=== PATIENT | female | born 1945 | race Caucasian/White ===

== ENCOUNTER 2017-06-14 11:40 | Outpatient (CLI) | payer MEDICARE, OTHER ==
[2017-06-14 13:24] LABS: Hemoglobin 13.5 g/dL (12.0-16.0); Mean Corpuscular HGB CONC 34.3 g/dL (32.0-36.0); Mean Corpuscular Hemoglobin 32.4 pg (27.0-31.0); Mean Corpuscular Volume 94.5 fl (81.0-99.0); Mean Platelet Volume 8.7 fL (7.4-10.4); Platelet Count 174 thou/uL (130-400); RBC Distribution Width 13.4 % (11.5-14.5); Red Blood Cell (RBC) Count 4.16 mill/uL (4.20-5.40); White Blood Cell (WBC) Count 6.6 thou/uL (4.8-10.8)
[2017-06-14 13:34] LABS: Anion Gap 11 mmol/L (10-20); BUN (Urea Nitrogen) 26 mg/dL (9.8-20.1); Calc. Creatinine Clearance 0 mL/min (70-130); Calcium 11.3 mg/dL (7.8-10.44); Carbon Dioxide 28 mmol/L (23-31); Chloride 104 mmol/L (98-107); Estimated GFR-MDRD 68; Glucose 80 mg/dL (83-110); Potassium 4.1 mmol/L (3.5-5.1); Sodium 139 mmol/L (136-145)
[2017-06-14 13:35] LABS: Platelet Count 183 thou/uL (130-400)
[2017-06-14 13:40] LABS: PTT 37.7 SEC (22.9-36.1); Prothrombin Time 22.9 SEC (12.0-14.7)
== END 2017-06-14 11:41 | disposition home or self-care (01) ==
LOC: LABBT 11:40
PROVIDERS: ATTEND Urology
DX: Z01.812 Encounter for preprocedural laboratory examination (principal); N20.0 Calculus of kidney
CPT/HCPCS: 80048; 85027; 85576; 85610; 85730; 87086

== ENCOUNTER 2017-06-26 05:55 | Day surgery (SDC) | payer MEDICARE, OTHER ==
[2017-06-14 12:11] VITALS: BMI 40.7
[2017-06-26] MEDS ORDERED: Fentanyl 100 MCG/2 ML VIAL ONE (07:26)
[2017-06-26] MEDS ORDERED: cefTRIAXone\\ROCEPHIN 1 GM VIAL ONE (07:44)
[2017-06-26] MEDS ORDERED: Iothalamate Meglumine 60% 50 ML VIAL FS ONE (08:09)
--- NOTE | 2017-06-26 11:51 | OP ---
DATE OF PROCEDURE: 06/26/2017 PREOPERATIVE DIAGNOSIS: Right renal stone. POSTOPERATIVE DIAGNOSIS: Right renal stone. PROCEDURE PERFORMED: Right extracorporeal shock wave lithotripsy, cystoscopy, right stent. SURGEON: Alex Syed M.D. ANESTHETIC: General. ESTIMATED BLOOD LOSS: Not recorded. FINDINGS: There was a large right renal pelvic stone treated with 2500 shocks at level 4. It did ap pear to change its shape and outlines did blur, some suggested the breakup 4.8 x 24 cm stent without a string attached was placed at the end of the case. OPERATIVE TECHNIQUE: After obtaining written and verbal consent from the patient, after documenting normal preoperative blood work today for an elevated PT and INR, which is related to her being drawn while she was still on anticoagulation. She was taken to the operating suite. She was placed in the supine position on the treatment table. PlexiPulses were placed on her lower extremities and turned on. She was given a general anesthetic, oral obturator intubation. She was coupled to the lithotri ptor unit. Stone was easily seen and placed in treatment focal point. Shockwave therapy was commenc ed in very low kV. After about 300 shocks, a pause was given. KUB was taken up only to level 4. Th e stone was treated with 2500 shocks. She was then placed in dorsal lithotomy position, sterilely pr epped and draped. Cystoscopy was performed with a 22-Bruneian sheath and a 30-degree lens. The bladde r showed no evidence of tumor, foreign body, or stone. There was some mild bloody efflux from the ri ght ureter. The right ureter itself was quite small. A guidewire was used to intubate this and then a 5 Bruneian Pollack catheter was placed a few centimeters up the ureter. Contrast injected in a retr ograde manner to fill out the collecting system. Wire was then advanced up into the upper collecting system. The open-ended catheter was removed. The stent was placed over the guidewire and pushed up in place with the aid of a pusher, so its proximal end coiled in the renal pelvis and its distal end coiled in the bladder when the wire was removed. The patient at this point was awakened, extubated, and taken by stretcher to the recovery room.
[2017-06-26] MEDS ORDERED: Metoclopramide HCl 10 MG/2 ML VIAL ONE (16:03)
[2017-06-26] MEDS ORDERED: ePHEDrine/0.9% NaCl/PF SYRINGE 50 mg/10 ml ONE (16:03)
[2017-06-26] MEDS ORDERED: Dexamethasone 20 MG/5 ML VIAL ONE (16:03)
[2017-06-26] MEDS ORDERED: diphenhydrAMINE 50 MG/ML VIAL ONE (16:03)
[2017-06-26] MEDS ORDERED: Propofol 200 MG/20 ML VIAL ONE (16:03)
[2017-06-26] MEDS ORDERED: Ondansetron HCl/PF 4 MG/2 ML Vial ONE (16:03)
[2017-06-26] MEDS ORDERED: Lidocaine 1% PF 5 ML VIAL ONE (16:03)
[2017-06-26] MEDS ORDERED: PHENYLEPHRINE-NS 100 MCG/ML 10 ML SYRINGE ONE (16:03)
== END 2017-06-26 11:20 | disposition home or self-care (01) ==
LOC: SDC 05:55
PROVIDERS: ATTEND Urology
PROC: 0TF3XZZ Fragmentation in Right Kidney Pelvis, External Approach (ICD-10-PCS; principal; 2017-06-26)
PROC: 0T768DZ Dilation of Right Ureter with Intraluminal Device, Via Natural or Artificial Opening Endoscopic (ICD-10-PCS; 2017-06-26)
DX: N20.0 Calculus of kidney (principal); Z91.048 Other nonmedicinal substance allergy status; Z88.1 Allergy status to other antibiotic agents; Z96.653 Presence of artificial knee joint, bilateral; Z90.710 Acquired absence of both cervix and uterus; Z90.49 Acquired absence of other specified parts of digestive tract; Z98.890 Other specified postprocedural states
CPT/HCPCS: 50590; 52332; C1758; J0131; J0696; J1100; J1200; J2001; J2405; J2704; J2765; J3010; Q9961

== ENCOUNTER 2017-07-10 06:09 | Day surgery (SDC) | payer MEDICARE, OTHER ==
[2017-07-09 10:45] VITALS: BMI 40.7
[2017-07-10] MEDS ORDERED: Midazolam HCl 2 mg/2 ml Vial ONE (06:54)
[2017-07-10] MEDS ORDERED: Fentanyl 100 MCG/2 ML VIAL ONE (06:54)
[2017-07-10] MEDS ORDERED: CEFAZOLIN/Water 2 GM/20 ML SYRINGE ONE (07:07)
[2017-07-10 07:22] LABS: Hemoglobin 13.1 g/dL (12.0-16.0); Mean Corpuscular HGB CONC 33.1 g/dL (32.0-36.0); Mean Corpuscular Hemoglobin 30.9 pg (27.0-31.0); Mean Corpuscular Volume 93.3 fl (81.0-99.0); Mean Platelet Volume 8.7 fL (7.4-10.4); Platelet Count 168 thou/uL (130-400); RBC Distribution Width 13.3 % (11.5-14.5); Red Blood Cell (RBC) Count 4.23 mill/uL (4.20-5.40); White Blood Cell (WBC) Count 9.3 thou/uL (4.8-10.8)
[2017-07-10 07:34] LABS: Anion Gap 12 mmol/L (10-20); BUN (Urea Nitrogen) 35 mg/dL (9.8-20.1); Calc. Creatinine Clearance 80 mL/min (70-130); Calcium 11.1 mg/dL (7.8-10.44); Carbon Dioxide 26 mmol/L (23-31); Chloride 103 mmol/L (98-107); Estimated GFR-MDRD 46; Glucose 142 mg/dL (83-110); Potassium 3.9 mmol/L (3.5-5.1); Sodium 137 mmol/L (136-145)
--- NOTE | 2017-07-10 08:10 | RAD ---
KUB: HISTORY: Preoperative evaluation. FINDINGS/IMPRESSION: Multiple calcific densities consistent with calculi are seen in the projection of the left kidney. T here is a right-sided atrial stent. There is a suggestion of a 1.7 cm calculus in the projection of the right kidney. Pelvic phleboliths are seen. There is a significant amount of fecal material in t he colon. POS: [facility]
--- NOTE | 2017-07-10 13:32 | OP ---
DATE OF PROCEDURE: 07/10/2017. PREOPERATIVE DIAGNOSIS: Right renal stone. POSTOPERATIVE DIAGNOSIS: Right renal stone. PROCEDURE PERFORMED: Right ESWL. SURGEON: Dr. Alex Syed ANESTHETIC: General. ESTIMATED BLOOD LOSS: Not recorded. FINDINGS: She has a 2 cm or slightly larger group of stones in the renal pelvis. She has been treat ed a couple weeks ago. She was treated with 2850 shocks at maximum kV level of 5 today, did appear c hanged its configuration again. Lot of shocks miss the stone because of movement from the patient wi th her breathing and even with anesthesia giving her more sedation and more shallow breathing, and sh e still had this. For this reason, we did treat with a few more than we would have up to 2850 and tr y to get as many as we could on the stone itself. OPERATIVE TECHNIQUE: After obtaining written and verbal consent from the patient after receiving IV antibiotics, she was taken to the operating suite. She was placed in supine position on the treatmen t table. PlexiPulses were placed on her lower extremities and turned on. She was given a general an esthetic, oral obturator intubation. She was coupled to the lithotripter unit. The stone was easily seen and she was placed in treatment focal point. Shockwave therapy was commenced and after 100 or so shocks, a pause was given. She was restarted up and taken up to level 5, repositioned as necessar y with frequent use of fluoroscopy because of movement of the stone with breathing. At the end of 28 50 shocks, the stone appeared to have changes configuration considerably and the procedure was at [facility] t point terminated. She was awakened, extubated, and taken by stretcher to the recovery room.
--- NOTE | 2017-07-10 15:43 | EKG ---
Test Reason : PREOP Blood Pressure : / mmHG Vent. Rate : 066 BPM Atrial Rate : 340 BPM P-R Int : 000 ms QRS Dur : 092 ms QT Int : 382 ms P-R-T Axes : 000 057 -30 degrees QTc Int : 400 ms Atrial fibrillation Incomplete right bundle branch block Abnormal ECG Confirmed by YANELI KNOX ([id number]) on 07/10/2017 3:42:46 PM Referred By: LIU Confirmed By:YANELI KNOX
[2017-07-10] MEDS ORDERED: Lidocaine 1% PF 5 ML VIAL ONE (16:27)
[2017-07-10] MEDS ORDERED: Metoclopramide HCl 10 MG/2 ML VIAL ONE (16:27)
[2017-07-10] MEDS ORDERED: Ondansetron HCl/PF 4 MG/2 ML Vial ONE (16:27)
[2017-07-10] MEDS ORDERED: Dexamethasone 20 MG/5 ML VIAL ONE (16:27)
[2017-07-10] MEDS ORDERED: ePHEDrine/0.9% NaCl/PF SYRINGE 50 mg/10 ml ONE (16:27)
[2017-07-10] MEDS ORDERED: diphenhydrAMINE 50 MG/ML VIAL ONE (16:27)
[2017-07-10] MEDS ORDERED: Propofol 200 MG/20 ML VIAL ONE (16:27)
== END 2017-07-10 12:00 | disposition home or self-care (01) ==
LOC: SDC 06:09
PROVIDERS: ATTEND Urology
PROC: 0TF3XZZ Fragmentation in Right Kidney Pelvis, External Approach (ICD-10-PCS; principal; 2017-07-10)
DX: N20.0 Calculus of kidney (principal); E89.0 Postprocedural hypothyroidism; E89.2 Postprocedural hypoparathyroidism; I10 Essential (primary) hypertension; I48.91 Unspecified atrial fibrillation; M19.90 Unspecified osteoarthritis, unspecified site; E66.01 Morbid (severe) obesity due to excess calories; Z68.41 Body mass index [BMI] 40.0-44.9, adult; Z99.89 Dependence on other enabling machines and devices; Z79.890 Hormone replacement therapy; Z79.01 Long term (current) use of anticoagulants; Z79.899 Other long term (current) drug therapy; Z88.1 Allergy status to other antibiotic agents; Z91.048 Other nonmedicinal substance allergy status; Z96.653 Presence of artificial knee joint, bilateral; Z96.89 Presence of other specified functional implants; Z90.89 Acquired absence of other organs; Z90.710 Acquired absence of both cervix and uterus; Z90.49 Acquired absence of other specified parts of digestive tract; Z98.890 Other specified postprocedural states; Z85.828 Personal history of other malignant neoplasm of skin; Z87.442 Personal history of urinary calculi
CPT/HCPCS: 36415; 74018; 80048; 85027; 93005; 93010; J1100; J1200; J2001; J2250; J2405; J2704; J2765; J3010

== ENCOUNTER 2017-07-24 06:18 | Day surgery (SDC) | payer MEDICARE, OTHER ==
[2017-07-23 13:57] VITALS: BMI 40.7
[2017-07-24] MEDS ORDERED: cefTRIAXone\\ROCEPHIN 1 GM, Syringe 0.4 ML in Sterile Water 9.6 ML SLOW IVP ONE (07:30)
[2017-07-24 08:09] LABS: Anion Gap 10 mmol/L (10-20); BUN (Urea Nitrogen) 26 mg/dL (9.8-20.1); Calc. Creatinine Clearance 104 mL/min (70-130); Carbon Dioxide 26 mmol/L (23-31); Chloride 107 mmol/L (98-107); Estimated GFR-MDRD 61; Glucose 117 mg/dL (83-110); Potassium 4.3 mmol/L (3.5-5.1); Sodium 139 mmol/L (136-145)
[2017-07-24] MEDS ORDERED: Iothalamate Meglumine 60% 50 ML VIAL FS ONE (09:39)
[2017-07-24] MEDS ORDERED: Fentanyl 250 MCG/5 ML VIAL ONE (12:07)
--- NOTE | 2017-07-24 12:52 | OP ---
DATE OF PROCEDURE: 07/24/2017 PREOPERATIVE DIAGNOSIS: Right renal stones. POSTOPERATIVE DIAGNOSIS: Right renal stones. PROCEDURES PERFORMED: Right ESWL with cystoscopy, removal of right stent, replacement of right stent . SURGEON: Alex Syed M.D. ANESTHESIA: General. ESTIMATED BLOOD LOSS: Not recorded. FINDINGS: She had stone fragments from prior lithotripsies of a very large right renal pelvic stone. We treated most these fragments in the renal pelvic region and we treated with 2500 shocks at [facility] KV level of 5 and 6, 5 for the first 1400 and 6 for the next 1100. We then treated with 300 extra shots with some smaller stone fragments that were done in the lower pole. A stent was replaced with a 6 x 24 Polaris without string attached. OPERATIVE TECHNIQUE: Obtained written verbal consent from the patient. After receiving IV antibioti cs, she was taken to the operating suite. She was placed in supine position on treatment table. Ple xiPulses were placed on lower extremities and turned on. She was given a general anesthetic, oral in tubation. The lithotripter unit was brought in and coupled to where the stones were placed in [facility] focal point and shockwave therapy was commenced. Fluoroscopy was used intermittently to document stone fragmentation and reposition as necessary. She has had a pause given after a couple 100 shock s and at that point, we went up to a KV level of 5 and after 1400 shocks up to KV level of 6. We the n repositioned her and treated some smaller stone little fragments that were in the lower pole with 3 00 shocks. At this point, she was placed in the dorsal lithotomy position, sterilely prepped and tabitha ped. Cystoscopy was performed with a 22 Lao sheath, well lubricated, passed in direct vision thro ugh the female urethra into the bladder with aid of a video camera and monitor and a 30-degree lens. The bladder was filled and emptied. There was some blood in the bladder effluxing from the right ur eter that was not a significant amount. Indwelling stent was grasped and brought out through the ure thral meatus and started to mildly and crossed guidewire was fed through and it was removed over the guidewire. A 5 Lao Pollack catheter was passed up into the midureter. It was removed. Contrast injected to fill out the collecting system on that side showed some filling defects consistent with s mall stones and probably some blood clots. A guidewire was replaced. The open-ended catheter was re moved and a 6 x 24 Polaris double-J stent was pushed up over the guidewire into place so its proximal end coiled in the renal pelvis and its distal end coiled in the bladder when the wire was removed. The patient at this point was awakened and extubated and taken by stretcher to the recovery room.
== END 2017-07-24 13:40 | disposition home or self-care (01) ==
LOC: SDC 06:18
PROVIDERS: ATTEND Urology
PROC: 0TF3XZZ Fragmentation in Right Kidney Pelvis, External Approach (ICD-10-PCS; principal; 2017-07-24)
PROC: 0T768DZ Dilation of Right Ureter with Intraluminal Device, Via Natural or Artificial Opening Endoscopic (ICD-10-PCS; 2017-07-24)
DX: N20.0 Calculus of kidney (principal); E03.9 Hypothyroidism, unspecified; I10 Essential (primary) hypertension; I48.91 Unspecified atrial fibrillation; N95.2 Postmenopausal atrophic vaginitis; Z88.1 Allergy status to other antibiotic agents; Z91.048 Other nonmedicinal substance allergy status; Z79.01 Long term (current) use of anticoagulants; Z79.899 Other long term (current) drug therapy
CPT/HCPCS: 80048; 96374; A4216; C1758; J0131; J0696; J3010; Q9961

== ENCOUNTER 2017-08-14 11:49 | Day surgery (SDC) | payer MEDICARE, OTHER ==
[2017-08-13 10:15] VITALS: BMI 40.7
[2017-08-14] MEDS ORDERED: Glycopyrrolate 0.2 MG/ML 5 ML SYRINGE ONE (13:12)
[2017-08-14] MEDS ORDERED: PROPOFOL 200 MG/20 ML VIAL ONE (13:12)
[2017-08-14] MEDS ORDERED: Ondansetron HCl/PF 4 MG/2 ML Vial ONE (13:12)
[2017-08-14] MEDS ORDERED: PHENYLEPHRINE-NS 100 MCG/ML 10 ML SYRINGE ONE (13:12)
[2017-08-14] MEDS ORDERED: Esmolol 100 MG/10 ML VIAL ONE (13:12)
[2017-08-14] MEDS ORDERED: Dexamethasone 20 MG/5 ML VIAL ONE (13:12)
[2017-08-14] MEDS ORDERED: Lidocaine 1% PF 5 ML VIAL ONE (13:12)
[2017-08-14] MEDS ORDERED: cefTRIAXone\\ROCEPHIN 1 GM, Syringe 0.4 ML in Sterile Water 9.6 ML SLOW IVP ONE (13:15)
[2017-08-14 13:27] LABS: #Basophils 0.1 thou/uL (0.0-0.2); #Eosinphils 0.3 thou/uL (0.0-0.7); #Lymphocytes 2.4 thou/uL (1.20-3.40); #Monocytes 0.8 thou/uL (0.11-0.59); #Neutrophils 3.9 thou/uL (1.40-6.50); %Basophils 1.3 % (0.0-1.0); %Lymphocytes 31.6 % (21.0-51.0); %Monocytes 10.7 % (0.0-10.0); %Neutrophils 52.3 % (42.0-75.0); Mean Corpuscular Hemoglobin 30.3 pg (27.0-31.0); Mean Corpuscular Volume 94.6 fl (81.0-99.0); Mean Platelet Volume 8.5 fL (7.4-10.4); Platelet Count 190 thou/uL (130-400); RBC Distribution Width 13.7 % (11.5-14.5); Red Blood Cell (RBC) Count 4.96 mill/uL (4.20-5.40); White Blood Cell (WBC) Count 7.5 thou/uL (4.8-10.8)
[2017-08-14 13:39] LABS: INR-International Normal Ratio 1.1; PTT 29.8 SEC (22.9-36.1); Prothrombin Time 14.5 SEC (12.0-14.7)
[2017-08-14 13:51] LABS: Anion Gap 11 mmol/L (10-20); BUN (Urea Nitrogen) 25 mg/dL (9.8-20.1); Calc. Creatinine Clearance 101 mL/min (70-130); Carbon Dioxide 31 mmol/L (23-31); Chloride 102 mmol/L (98-107); Estimated GFR-MDRD 60; Glucose 104 mg/dL (83-110); Potassium 3.8 mmol/L (3.5-5.1); Sodium 140 mmol/L (136-145)
[2017-08-14 13:54] LABS: Calcium 12.1 mg/dL (7.8-10.44)
[2017-08-14] MEDS ORDERED: Iothalamate Meglumine 60% 50 ML VIAL FS ONE (14:08)
[2017-08-14] MEDS ORDERED: Levofloxacin 500 mg/D5W 100 ml Premix Bag ONE (14:10)
[2017-08-14] MEDS ORDERED: Fentanyl 100 MCG/2 ML VIAL ONE (14:35)
--- NOTE | 2017-08-14 19:10 | RAD ---
RETROGRADE IVP 08/14/17 COMPARISON: None. HISTORY: Renal calcification. FINDINGS/IMPRESSION: Multiple limited intraoperative fluoroscopic views of a retrograde IVP were submitted for interpretat ion. The first image shows a ureteral stent in good position in the right renal collecting system. Th ere is a calcification adjacent to the pigtail catheter within the right kidney. This appears to be t argeted with a lithotripsy device on lateral images. The stent is then not visualized and no signific ant hydronephrosis is seen. Eventually, a double-J ureteral stent is again placed in the right renal collecting system in good position. POS: [facility]
--- NOTE | 2017-08-15 00:24 | OP ---
PREOPERATIVE DIAGNOSIS: Right renal stones. POSTOPERATIVE DIAGNOSIS: Right renal stones. PROCEDURES PERFORMED: Cystoscopy, removal of right stent, right rigid and flexible ureteroscopy rela te with Holmium laser lithotripsy, stone retrieval, and stent replacement. SURGEON: Alex Syed MD ANESTHESIA: General. ESTIMATED BLOOD LOSS: Minimal. FINDINGS: She had a few stone fragments in the ureter, none of them of any significant size. She medina d two fragments, one in the mid calyx and one in the upper taylor that were probably 6-7 mm in size, a nd these were each broken up with a Holmium laser. She had numerous smaller fragments in the 2-3 mm range and a number of these were basketed out and sent off for stone analysis. Some of the others we re lasered into smaller and smaller pieces, but left in situ to pass on their own. DRAINS PLACED: A 6 x 24 Polaris double-J stent without a string attached to it. OPERATIVE TECHNIQUE: Obtain written verbal consent from the patient after receiving IV antibiotics, she was taken to the operating suite. She was placed in the supine position on the treatment table. PlexiPulses were placed on the lower extremities and turned on. She was given a general anesthetic and oral intubation. She was then placed in the dorsal lithotomy position and sterilely prepped and draped. Traveling Crane Operator KUB was taken with the fluoroscopy unit. Cystoscopy was performed with a 22-Greenlandic sh eath. This was well lubricated, passed under direct vision through the female urethra into the urina ry bladder with the aid of a video camera and monitor. The bladder was filled and emptied a couple o f times. A stent was grasped and brought out, a guidewire was fed up through it and the stent was re moved over the guidewire. A dual-lumen catheter was placed over the guidewire and a second guidewire was passed up this side. We then went ahead and removed these instruments and brought in a small ca liber graduated rigid ureteroscope and went up the ureter. She had probably 15-20 very small fragmen ts in the ureter that were small enough not to even require basketing. We then went ahead and passed a ureteral stent with obturator up to the region of the proximal ureter over one of our guidewires a nd removed that guidewire and brought in the flexible ureteroscope. This was used to go up the stent and into the renal pelvis. We then systematically went through the entire calyceal system using a s mall caliber Holmium laser to fragment any sizable piece which are only a couple of and then to use a nitinol basket to retrieve and remove numerous stone fragments sending these all off for analysis. At the end, we were left with some small stones in each collecting system that we again lasered to ju st get some smaller and smaller and as we reinspected, we found no sizable stone remaining. We then examined the ureter as we backed out the sheath, there was no stone seen in the ureter. The guidewir e was backloaded through the cystoscope and our stent was placed over the guidewire, pushing up into place with aid of a pusher so its proximal end coiled in the renal pelvis and its distal end coiled i n the bladder when the wire was removed, the string was left attached to it. Prior to this, we done a complete retrograde of that side which showed no persistent filling defect or evidence of extravasa tion in the caliceal system, renal pelvis, or proximal, mid, or distal ureter. At this point, the bl adder was emptied. The patient was taken out of the dorsal lithotomy position, awakened, extubated, and taken by stretcher to recovery room.
[2017-09-12 11:12] LABS: Color TAN
== END 2017-08-14 19:40 | disposition home or self-care (01) ==
LOC: SDC 11:49
PROVIDERS: ATTEND Urology
PROC: 0TF38ZZ Fragmentation in Right Kidney Pelvis, Via Natural or Artificial Opening Endoscopic (ICD-10-PCS; principal; 2017-08-14)
PROC: 0T768DZ Dilation of Right Ureter with Intraluminal Device, Via Natural or Artificial Opening Endoscopic (ICD-10-PCS; 2017-08-14)
DX: N20.0 Calculus of kidney (principal); I10 Essential (primary) hypertension; I48.91 Unspecified atrial fibrillation; E21.3 Hyperparathyroidism, unspecified; Z88.1 Allergy status to other antibiotic agents; Z91.048 Other nonmedicinal substance allergy status; Z98.890 Other specified postprocedural states
CPT/HCPCS: 52356; 74420; 80048; 85025; 85610; 85730; 88300; C1758; 36415; 82365; A4216; J0696; J1100; J1956; J2001; J2405; J2704; J3010; Q9961

== ENCOUNTER 2018-11-17 09:06 | Outpatient (CLI) | payer MEDICARE, OTHER ==
[2018-11-17 14:34] LABS: Hemoglobin 14.3 g/dL (12.0-16.0); Mean Corpuscular HGB CONC 34.2 g/dL (32.0-36.0); Mean Corpuscular Hemoglobin 31.9 pg (27.0-31.0); Mean Corpuscular Volume 93.3 fL (78.0-98.0); Mean Platelet Volume 9.1 fL (7.4-10.4); Platelet Count 172 thou/uL (130-400); RBC Distribution Width 12.9 % (11.5-14.5); Red Blood Cell (RBC) Count 4.47 mill/uL (4.20-5.40); White Blood Cell (WBC) Count 6.6 thou/uL (4.8-10.8)
[2018-11-17 14:38] LABS: Bilirubin Negative (Negative); Blood, Urine Moderate (Negative); Clarity CLEAR (Clear); Glucose, Urine (Dipstick) Negative (Negative); Leukocyte Small (Negative); Nitrite Negative (Negative); Protein, Urine (Dipstick) Negative (Neg-Trace)
[2018-11-17 14:40] LABS: INR-International Normal Ratio 1.6; PTT 36.1 SEC (22.9-36.1)
[2018-11-17 14:41] LABS: Bacteria/HPF None Seen HPF (None Seen); Hyaline Casts/LPF 0-3 HYALINE CAST LPF (0-3 Hyaline); Pathc Cast-AUWi Flag 0.27 (0-2.49); Squamous Epithelial 0-3 HPF (0-3)
[2018-11-17 14:54] LABS: Anion Gap 11 mmol/L (10-20); BUN (Urea Nitrogen) 43 mg/dL (9.8-20.1); Calc. Creatinine Clearance 0 mL/min (70-130); Calcium 11.1 mg/dL (7.8-10.44); Carbon Dioxide 29 mmol/L (23-31); Chloride 99 mmol/L (98-107); Estimated GFR-MDRD 55; Glucose 87 mg/dL (83-110); Sodium 135 mmol/L (136-145)
== END 2018-11-17 09:07 | disposition home or self-care (01) ==
LOC: LABBT 09:06
PROVIDERS: ATTEND Urology
DX: Z01.812 Encounter for preprocedural laboratory examination (principal); R31.0 Gross hematuria; N20.0 Calculus of kidney
CPT/HCPCS: 80048; 81001; 85027; 85610; 85730; 87086

== ENCOUNTER 2018-11-24 06:34 | Day surgery (SDC) | payer MEDICARE, OTHER ==
[2018-11-17 13:23] VITALS: BMI 39.1
[2018-11-24] MEDS ORDERED: Levofloxacin 500 mg/D5W 100 ml Premix Bag ONE (07:51)
[2018-11-24] MEDS ORDERED: Fentanyl 100 MCG/2 ML VIAL ONE (08:41)
[2018-11-24] MEDS ORDERED: Iothalamate Meglumine 60% 50 ML VIAL FS ONE (09:12)
--- NOTE | 2018-11-24 10:54 | RAD ---
Exam: Retrograde pyelogram: HISTORY: Renal calculi, stent placement. COMPARISON: Abdomen and pelvic CT scan, 11/03/2018 FINDINGS: Multiple portable fluoroscopic spot images are performed demonstrating contrast injection in the left ureter and upper collecting system with wire and stent placement. IMPRESSION: Documentation of left ureteral stent placement.
[2018-11-24] MEDS ORDERED: Lidocaine 1% PF 5 ML VIAL ONE (11:52)
[2018-11-24] MEDS ORDERED: PHENYLEPHRINE-NS 100 MCG/ML 10 ML SYRINGE ONE (11:52)
[2018-11-24] MEDS ORDERED: Ondansetron PF 4 MG/2 ML Vial ONE (11:52)
[2018-11-24] MEDS ORDERED: PROPOFOL 200 MG/20 ML VIAL ONE (11:52)
--- NOTE | 2018-11-24 12:11 | OP ---
DATE OF PROCEDURE: 11/24/2018 PREOPERATIVE DIAGNOSES: Left renal pelvic filling defect and history of gross hematuria. POSTOPERATIVE DIAGNOSIS: Left renal pelvic filling defect and history of gross hematuria. PROCEDURE PERFORMED: Cystoscopy, left retrograde, attempted left ureteroscopy, left stent placement. ANESTHETIC: General. ESTIMATED BLOOD LOSS: Minimal. FINDINGS: There was a normal-appearing ureter, it was not dilated, and did not see any obvious filling defects. It was in the renal collecting system, may just be a prominent renal problem. DRAINS PLACED: A 6 x 24 Polaris double-J stent. No string attached. OPERATIVE INDICATIONS: This is a pleasant lady with a history of kidney stones, who had gross hematuria recently on CAT scan with contrast, has a filling defect in the left calyceal system. She is coming in now for attempted ureteroscopy, realizing that if we cannot get a ureteroscope up to place of the stent and come back at another time. DESCRIPTION OF PROCEDURE: After obtaining written and verbal consent from the patient after receiving IV antibiotics, she was taken to the operative suite. She was placed in the supine position on the treatment table. PlexiPulses were placed on her lower extremities and turned on. She was given a general anesthetic and oral obturator intubation, placed in the dorsal lithotomy position, sterilely prepped and draped. Cystoscopy was performed with a 22-Egyptian sheath. This was well lubricated and advanced under direct vision through the female urethra into the urinary bladder. The bladder was filled and emptied number of times and examined with both the 30- and 70-degree lens. Next, using the 30-degree lens, we brought in a 5-Egyptian pollock catheter flushed with contrast enhancement for about a centimeter up the left ureteral orifice and injected contrast in a retrograde manner filling out the ureter and collecting system and taken images. The guidewire was then fed up through this open-ended catheter, and then, we fed another guidewire up through the open-ended catheter. We were able to get the open-ended catheter into guidewires all adjacent to each other without difficulty all the way up in the renal pelvis. The open-ended catheter was removed. A small caliber flexible ureteroscope was brought in and placed over one of the guidewires and attempted to place up the left ureter. However, it would go about 2 cm up and just meant some area of narrowing and felt it was not safe to try to force this instrument up any further. So, at this point, the procedure was terminated. One of her guidewires was removed, leaving other in place. So, we backloaded the cystoscope over this wire and placed a 6 x 26 Polaris double-J stent over the wire, pushing up in the place with aid of a pusher, so its proximal end coiled in the renal pelvis and its distal end coiled in the wire in the bladder when the wire was removed. The bladder was drained. The instruments were removed. The patient was taken out of the dorsal lithotomy position, awakened, extubated, and taken by stretcher to recovery room. Job ID: [id number]
== END 2018-11-24 11:35 | disposition home or self-care (01) ==
LOC: SDC 06:34
PROVIDERS: ATTEND Urology
PROC: 0T9780Z Drainage of Left Ureter with Drainage Device, Via Natural or Artificial Opening Endoscopic (ICD-10-PCS; principal; 2018-11-24)
DX: R93.41 Abnormal radiologic findings on diagnostic imaging of renal pelvis, ureter, or bladder (principal); I10 Essential (primary) hypertension; I48.91 Unspecified atrial fibrillation; G47.30 Sleep apnea, unspecified; Z87.448 Personal history of other diseases of urinary system; Z91.048 Other nonmedicinal substance allergy status; Z88.1 Allergy status to other antibiotic agents; Z79.01 Long term (current) use of anticoagulants; Z79.899 Other long term (current) drug therapy
CPT/HCPCS: 74420; 93005; 93010; C1758; J1956; J2001; J2405; J2704; J3010

== ENCOUNTER 2018-12-08 06:48 | Day surgery (SDC) | payer MEDICARE, OTHER ==
[2018-12-05 11:55] VITALS: BMI 37.5
[2018-12-08 07:59] LABS: Hemoglobin 14.7 g/dL (12.0-16.0); Mean Corpuscular HGB CONC 32.7 g/dL (32.0-36.0); Mean Corpuscular Hemoglobin 30.3 pg (27.0-31.0); Mean Corpuscular Volume 92.7 fL (78.0-98.0); Mean Platelet Volume 9.3 fL (7.4-10.4); Platelet Count 158 thou/uL (130-400); Red Blood Cell (RBC) Count 4.85 mill/uL (4.20-5.40); White Blood Cell (WBC) Count 7.7 thou/uL (4.8-10.8)
[2018-12-08] MEDS ORDERED: Levofloxacin 500 mg/D5W 100 ml Premix Bag ONE (08:01)
[2018-12-08 08:16] LABS: Anion Gap 13 mmol/L (10-20); BUN (Urea Nitrogen) 42 mg/dL (9.8-20.1); Calc. Creatinine Clearance 81 mL/min (70-130); Calcium 11.1 mg/dL (7.8-10.44); Carbon Dioxide 27 mmol/L (23-31); Chloride 100 mmol/L (98-107); Estimated GFR-MDRD 52; Glucose 104 mg/dL (83-110); Potassium 3.6 mmol/L (3.5-5.1); Sodium 136 mmol/L (136-145)
[2018-12-08 08:47] LABS: INR-International Normal Ratio 1.2; Prothrombin Time 15.6 SEC (12.0-14.7)
[2018-12-08 08:48] LABS: PTT 31.6 SEC (22.9-36.1)
[2018-12-08] MEDS ORDERED: Fentanyl 100 MCG/2 ML VIAL ONE (09:08)
[2018-12-08] MEDS ORDERED: Iothalamate Meglumine 60% 50 ML VIAL FS ONE (09:41)
--- NOTE | 2018-12-08 11:48 | RAD ---
Retrograde ureterogram intraoperative fluoroscopy HISTORY: Ureteral stent. FINDINGS: Intraoperative fluoroscopy was provided for retrograde study is performed by Dr. Pride. Si ngle spot fluoroscopic image shows stent overlying the course of the left ureter. Proximal end of the stent overlies the left renal pelvis and is incompletely coiled. The tip is directed towards the inferior pole collecting system. Contrast is present within the nondilated collecting system. Inferior aspect of the stent is not included on the image.
--- NOTE | 2018-12-08 12:01 | OP ---
DATE OF PROCEDURE: 12/08/2018 PREOPERATIVE DIAGNOSES: Left calyceal filling defect with a history of gross hematuria and left renal stones. POSTOPERATIVE DIAGNOSES: Left calyceal filling defect with a history of gross hematuria and left renal stones. PROCEDURES PERFORMED: Cystoscopy, discontinue left stent, left flexible ureteroscopy with laser lithotripsy of stones, left retrograde, and left stent replacement. ANESTHETIC: General. EBL: Minimal. SPECIMENS REMOVED: Old stent. DRAINS PLACED: A 6 x 24 Polaris double-J stent with a string attached to it. FINDINGS: She had no evidence of bladder tumor, foreign body, or stone. There is no evidence of any stones or tumors along the course of the left ureter. There is no evidence of any tumors in the left renal pelvis or any of the left calyceal systems including the upper, mid, and lower calyceal systems. She did have some small less than 1 cm stones in the upper calyceal system and one of the calyx is in the lower pole system. These were lasered with the holmium laser. We did not make any attempt to remove these fragments that is broken up into small pieces. OPERATIVE INDICATIONS: This is a 73-year-old white female, who recently had some gross hematuria and had a contrast CAT scan done that showed a suggestion of a filling defect in one of her calyceal systems on the left side. She has a long history of stone disease also. We tried to do ureteroscopy about two weeks ago, but her ureter would not allow the flexible scope to go up, so a stent was placed and she is coming in now to have this procedure done. She has been on some Macrobid while the stents in and her urine culture was negative. She received IV antibiotics today. DESCRIPTION OF PROCEDURE: Obtained written and verbal consent from the patient after receiving IV Levaquin, she was taken to the operating suite. She was placed in the supine position on the treatment table. PlexiPulses were placed on her lower extremities and turned on. She was given a general anesthetic and oral intubation. She was then placed in the dorsal lithotomy position and sterilely prepped and draped. Fluoroscopy unit was used and positioned over her. The stent was easily seen. Cystoscopy was performed with a 22-German sheath. This was well lubricated and passed under direct vision through the female urethra into the urinary bladder with the aid of a 30-degree lens and video camera and monitor. The bladder was examined with 30 and 70-degree lens. The distal end of the double-J stent was grasped and brought out through the urethral meatus and a 0.038 blue Stiff wire was placed through this and up into the renal pelvis and the stent was removed over the wire. The dual lumen ureteral catheter was placed over this and went all the way up into the area of the renal pelvis easily. A second guidewire, 0.038 green guidewire was placed through this and then the dual-lumen catheter was removed leaving us two guidewires. The blue wire was then used to be passed through the flexible ureteroscope and then it was used as a guide to get this up into the upper renal collecting system. At this point, the blue wire was removed. We then systematically examined the calices in the upper, mid, and lower collecting system as well as the renal pelvis. She had some prominent renal papilla, but she had no evidence of any tumor of any type. She has some stones in the upper and lower calyx. These were stones that were less than a centimeter in size. We went ahead and used a holmium laser to break these up into smaller and smaller pieces. Once this was completed, we removed the ureteroscope and backloaded our green wire through our cystoscope. A 5-German [place] was passed over this up in the region of the renal pelvis and the wire was removed. About 15 mL of contrast were injected that felt like the upper collecting system to fill out the entire calyceal system, the renal pelvis, and the ureter, there was no extravasation. There was no evidence of any obstruction along the course of the ureter. The guidewires were placed to the open-ended catheter and the open-ended catheter was removed and we passed a 6 x 24 Polaris double-J stent over the guidewire, pushing up into place with the aid of a pusher, so its proximal end coiled in the renal pelvis and its distal end coiled in the bladder when the wire was removed. The bladder was drained. The instruments were removed. String was left attached to the stent, it was cut short, and she was taken out of the dorsal lithotomy position, awakened, extubated, and taken by stretcher to recovery room. Job ID: [id number]
== END 2018-12-08 13:14 | disposition home or self-care (01) ==
LOC: SDC 06:48
PROVIDERS: ATTEND Urology
PROC: 0TF48ZZ Fragmentation in Left Kidney Pelvis, Via Natural or Artificial Opening Endoscopic (ICD-10-PCS; principal; 2018-12-08)
PROC: 0T778DZ Dilation of Left Ureter with Intraluminal Device, Via Natural or Artificial Opening Endoscopic (ICD-10-PCS; 2018-12-08)
DX: N20.0 Calculus of kidney (principal); R93.422 Abnormal radiologic findings on diagnostic imaging of left kidney; I10 Essential (primary) hypertension; G47.30 Sleep apnea, unspecified; I48.0 Paroxysmal atrial fibrillation; Q21.1 Atrial septal defect; E89.2 Postprocedural hypoparathyroidism; E89.0 Postprocedural hypothyroidism; I34.0 Nonrheumatic mitral (valve) insufficiency; E66.01 Morbid (severe) obesity due to excess calories; Z68.37 Body mass index [BMI] 37.0-37.9, adult; Z79.01 Long term (current) use of anticoagulants; Z79.2 Long term (current) use of antibiotics; Z79.899 Other long term (current) drug therapy; Z88.1 Allergy status to other antibiotic agents; Z88.8 Allergy status to other drugs, medicaments and biological substances; Z91.048 Other nonmedicinal substance allergy status
CPT/HCPCS: 36415; 74420; 80048; 85027; 85610; 85730; C1758; J1956; J3010

== ENCOUNTER 2025-02-09 11:02 | Outpatient (CLI) | payer MEDICARE, OTHER ==
[2025-02-09 13:41] LABS: #Basophils 0.05 10x3/uL (0.0-0.2); #Eosinophils 0.08 10x3/uL (0.0-0.7); #Monocytes 1.03 10x3/uL (0.11-0.59); #Neutrophils 4.21 10x3/uL (1.40-6.50); %Basophils 0.8 % (0.0-1.0); %Eosinophils 1.2 % (0.0-10.0); %Lymphocytes 17.1 % (21.0-51.0); %Monocytes 15.8 % (0.0-10.0); %Neutrophils 64.8 % (42.0-75.0); Hematocrit 38.3 % (36.0-47.0); Hemoglobin 11.5 g/dL (12.0-16.0); Mean Corpuscular Hemoglobin 29.9 pg (27.0-31.0); Mean Corpuscular Volume 99.7 fL (78.0-98.0); Platelet Count 120 10x3/uL (130-400); Red Blood Cell (RBC) Count 3.84 mill/uL (4.20-5.40); White Blood Cell (WBC) Count 6.50 10x3/uL (4.8-10.8)
[2025-02-09 13:53] LABS: INR-International Normal Ratio 1.5; Prothrombin Time 18.4 sec (12.0-14.7)
[2025-02-09 13:55] LABS: PTT 37.1 sec (22.9-36.1)
[2025-02-09 14:03] LABS: Anion Gap 13 mmol/L (10-20); BUN (Urea Nitrogen) 31 mg/dL (9.8-20.1); Calc. Creatinine Clearance 0 mL/min (70-130); Calcium 10.7 mg/dL (7.8-10.44); Carbon Dioxide 34 mmol/L (23-31); Chloride 92 mmol/L (98-107); Glucose 89 mg/dL (83-110); Potassium 3.6 mmol/L (3.5-5.1); Sodium 135 mmol/L (136-145)
== END 2025-02-09 11:03 | disposition home or self-care (01) ==
LOC: LABBT 11:02
PROVIDERS: ATTEND Urology
DX: Z01.818 Encounter for other preprocedural examination (principal); N20.1 Calculus of ureter
CPT/HCPCS: 80048; 85025; 85610; 85730; 87086; 93005; 93010

== ENCOUNTER 2025-02-16 08:26 | Day surgery (SDC) | payer MEDICARE, OTHER ==
[2025-02-09 11:47] VITALS: BMI 35.0
[2025-02-16] MEDS ORDERED: LevoFLOXacin D5W 500 mg (100 mL) BAG ONE (10:13)
[2025-02-16] MEDS ORDERED: PROPOFOL 20 ML ONE (10:51)
[2025-02-16] MEDS ORDERED: fentaNYL PF 100 MCG/2 ML SYRINGE ONE (10:51)
[2025-02-16] MEDS ORDERED: Rocuronium Bromide 10 MG/ML (10ML VIAL) ONE (10:51)
[2025-02-16] MEDS ORDERED: Lidocaine 1% PF 5 ML VIAL ONE (10:51)
[2025-02-16] MEDS ORDERED: Ondansetron PF 4 MG/2 ML Vial ONE (10:59)
[2025-02-16] MEDS ORDERED: SUGAMMADEX SODIUM 200 MG/2 ML VIAL ONE (11:26)
== END 2025-02-16 14:21 | disposition home or self-care (01) ==
LOC: SDC 08:26
PROVIDERS: ATTEND Urology
PROC: 0WHR8YZ Insertion of Other Device into Genitourinary Tract, Via Natural or Artificial Opening Endoscopic (ICD-10-PCS; principal; 2025-02-16)
DX: N13.6 Pyonephrosis (principal); I10 Essential (primary) hypertension; K21.9 Gastro-esophageal reflux disease without esophagitis; Z79.899 Other long term (current) drug therapy; Z88.1 Allergy status to other antibiotic agents; Z91.048 Other nonmedicinal substance allergy status
CPT/HCPCS: 52332; 74420; 87086; J1100; J1956; J2704; C1769; C2617

== ENCOUNTER 2025-02-23 11:54 | Outpatient (CLI) | payer MEDICARE, OTHER ==
[2025-02-23 14:24] LABS: #Basophils 0.07 10x3/uL (0.0-0.2); #Eosinophils 0.23 10x3/uL (0.0-0.7); #Monocytes 1.21 10x3/uL (0.11-0.59); #Neutrophils 4.78 10x3/uL (1.40-6.50); %Basophils 1.0 % (0.0-1.0); %Eosinophils 3.3 % (0.0-10.0); %Lymphocytes 10.5 % (21.0-51.0); %Monocytes 17.2 % (0.0-10.0); %Neutrophils 67.7 % (42.0-75.0); Hematocrit 35.8 % (36.0-47.0); Hemoglobin 11.4 g/dL (12.0-16.0); Mean Corpuscular Hemoglobin 31.1 pg (27.0-31.0); Mean Corpuscular Volume 97.5 fL (78.0-98.0); Platelet Count 104 10x3/uL (130-400); Red Blood Cell (RBC) Count 3.67 mill/uL (4.20-5.40); White Blood Cell (WBC) Count 7.05 10x3/uL (4.8-10.8)
[2025-02-23 14:31] LABS: Anion Gap 13 mmol/L (10-20); BUN (Urea Nitrogen) 24 mg/dL (9.8-20.1); Calc. Creatinine Clearance 0 mL/min (70-130); Calcium 9.8 mg/dL (7.8-10.44); Carbon Dioxide 30 mmol/L (23-31); Chloride 95 mmol/L (98-107); Glucose 90 mg/dL (83-110); Potassium 3.5 mmol/L (3.5-5.1); Sodium 134 mmol/L (136-145)
== END 2025-02-23 11:55 | disposition home or self-care (01) ==
LOC: LABBT 11:54
PROVIDERS: ATTEND Urology
DX: Z01.812 Encounter for preprocedural laboratory examination (principal); N20.1 Calculus of ureter
CPT/HCPCS: 80048; 85025; 87086

== ENCOUNTER 2025-03-01 09:17 | Day surgery (SDC) | payer MEDICARE, OTHER ==
[2025-02-23 16:30] VITALS: BMI 35.0
[2025-03-01] MEDS ORDERED: Lidocaine 1% PF 5 ML VIAL ONE (10:14)
[2025-03-01] MEDS ORDERED: fentaNYL PF 100 MCG/2 ML SYRINGE ONE ×2 (10:14→12:59)
[2025-03-01] MEDS ORDERED: PROPOFOL 20 ML ONE (10:14)
[2025-03-01] MEDS ORDERED: Ondansetron PF 4 MG/2 ML Vial ONE (10:15)
[2025-03-01] MEDS ORDERED: Rocuronium Bromide 10 MG/ML (10ML VIAL) ONE (10:15)
[2025-03-01] MEDS ORDERED: LevoFLOXacin D5W 500 mg (100 mL) BAG ONE (10:33)
[2025-03-01] MEDS ORDERED: Vancomycin 1 GM/200 ML (FROZEN) BAG ONE (10:33)
[2025-03-01] MEDS ORDERED: SUGAMMADEX SODIUM 200 MG/2 ML VIAL ONE (12:21)
== END 2025-03-01 15:47 | disposition home or self-care (01) ==
LOC: SDC 09:17
PROVIDERS: ATTEND Urology
PROC: 0TC18ZZ Extirpation of Matter from Left Kidney, Via Natural or Artificial Opening Endoscopic (ICD-10-PCS; principal; 2025-03-01)
PROC: 0T778DZ Dilation of Left Ureter with Intraluminal Device, Via Natural or Artificial Opening Endoscopic (ICD-10-PCS; 2025-03-01)
DX: N20.0 Calculus of kidney (principal); I10 Essential (primary) hypertension; I48.91 Unspecified atrial fibrillation; E03.9 Hypothyroidism, unspecified; G47.33 Obstructive sleep apnea (adult) (pediatric); Z96.653 Presence of artificial knee joint, bilateral; Z96.1 Presence of intraocular lens; Z90.89 Acquired absence of other organs; Z90.710 Acquired absence of both cervix and uterus; Z90.49 Acquired absence of other specified parts of digestive tract; Z88.2 Allergy status to sulfonamides; Z88.1 Allergy status to other antibiotic agents; Z91.048 Other nonmedicinal substance allergy status; Z79.899 Other long term (current) drug therapy
CPT/HCPCS: 52356; 74420; 82365; C1758; C1769 ×2; C2617; J1100; J1956; J2704; J3010; J3373; Q9967; 88300